=== PATIENT | female | born 1990 | race Caucasian/White ===

== ENCOUNTER 2016-03-06 16:13 | Emergency (ER) | payer SELFPAY ==
[2016-03-06 17:07] VITALS: BP 142/86
[2016-03-06] MEDS ORDERED: Ketorolac INJ* 60 MG/2 ML VIAL IV PUSH ONE (17:37)
[2016-03-06] MEDS ORDERED: PROCHLORPERAZINE INJ 5 MG/ML 2 ML VIAL IV ONE (17:38)
[2016-03-06] MEDS ORDERED: diPHENhydraMINE IV* 50 MG/ML 1 ml VIAL (BENADRYL) IV ONE (17:38)
[2016-03-06] MEDS ORDERED: NS 0.9% 1000 ML* 1,000 ML IV ONE (17:39)
--- NOTE | 2016-03-06 19:29 | ED ---
Headache - HPI Summary HPI Summary: patient is a 25yo with a history of migraines with a cc of migraine with nausea and without aura x4 days. she states she is unable to keep anything down, and is vomiting several times per day. she states this is similiar in nature to her previous migraines and is diffuse. the pain does not radiate anywhere and is worse behind her eyes. she has a triptan at home which she tried to use, but did not take the medication as soon as the onset of the migraine. Now, with worsening nausea. - History Of Current Complaint Chief Complaint: UCHeadache Stated Complaint: HEADACHE Hx Obtained From: Patient Hx Last Menstrual Period: 3 months ago pt has PTOS with irregular periods Onset/Duration: Gradual Onset, Started days ago - 4 days ago Initially Headache Was: Initial Pain Scale(0-10)= - 10/10 - but states "not worst GALAVIZ ever) Currently Pain Is: Current Pain Scale(0-10)= - 8/10 Timing: Constant, Days Character: Throbbing, Pressure Location of Headache: Diffuse Aggravating Factor: Exertion, Bright Lights Allevating Factors: Rest, Other (Noted In Comments) Associated Signs And Symptoms: Dizziness, Nausea, Vomiting - Risk Factors SAH Risk Factors: Negative Meningitis Risk Factors: Negative SDH Risk Factors: Negative Temporal Arteritis Risk Factors: Female, - Allergies/Home Medications Allergies/Adverse Reactions: Allergies Allergy/AdvReac Type Severity Reaction Status Date / Time Penicillins [PCN] Allergy Anaphylatic Verified 03/06/16 17:06 Shock Home Medications: Home Medications Citalopram TAB* [CeleXA TAB*] 20 mg PO DAILY 03/06/16 [History Confirmed ] SUMAtriptan TAB* [Imitrex TAB*] 100 mg PO SEE INSTRUCTIONS 03/06/16 [History Confirmed 03/06/16] PMH/Surg Hx/FS Hx/Imm Hx Previously Healthy: Yes Musculoskeletal History: Reports: Hx Back Problems, Hx Orthopedic Injury - knee and shoulder injuries - Cancer History Hx Chemotherapy: No Hx Radiation Therapy: No - Surgical History Hx Anesthesia Reactions: No Infectious Disease History: No Infectious Disease History: Denies: Traveled Outside the [place] in Last 30 Days - Family History Known Family History: Positive: Unknown - Social History Occupation: Unemployed Lives: With Family Alcohol Use: None Hx Substance Use: No Substance Use Type: Reports: None Hx Tobacco Use: No Smoking Status (MU): Never Smoked Tobacco Do You Chew or Dip Tobacco: No Have You Chewed or Dipped Tobacco in the LAST YEAR: No Have You Smoked in the Last Year: No Household Exposure: No Review of Systems Positive: Fatigue Positive: Photophobia ENT: Negative Cardiovascular: Negative Respiratory: Negative Positive: Vomiting, Nausea Musculoskeletal: Negative Skin: Negative Positive: Headache Psychological: Normal All Other Systems Reviewed And Are Negative: Yes Physical Exam Triage Information Reviewed: Yes Vital Signs On Initial Exam: Initial Vitals Temp Pulse Resp BP Pulse Ox 99.2 F 89 20 142/86 98 03/06/16 17:03 03/06/16 17:03 03/06/16 17:03 03/06/16 17:03 03/06/16 17:03 Vital Signs Reviewed: Yes Appearance: Positive: Well-Appearing, Pain Distress Skin: Positive: Warm, Dry, Soft Head/Face: Positive: Normal Head/Face Inspection Eyes: Positive: Normal, EOMI, YAHAIRA, Conjunctiva Clear ENT: Positive: Normal ENT inspection, Pharynx normal Neck: Positive: Supple, Nontender, No Lymphadenopathy Respiratory/Lung Sounds: Positive: Clear to Auscultation, Breath Sounds Present Cardiovascular: Positive: Normal Abdomen Description: Positive: Nontender, Soft Bowel Sounds: Positive: Present Musculoskeletal: Positive: Normal, Strength/ROM Intact Neurological: Positive: Normal Psychiatric: Positive: Normal AVPU Assessment: Alert - Hoang Coma Scale Best Eye Response: 4 - Spontaneous Best Motor Response: 6 - Obeys Commands Best Verbal Response: 5 - Oriented Diagnostics - Vital Signs Vital Signs Temp Pulse Resp BP Pulse Ox 03/06/16 17:03 99.2 F 89 20 142/86 98 - Laboratory Lab Statement: Any lab studies that have been ordered have been reviewed, and results considered in the medical decision making process. Headache Course/Dx - Course Course Of Treatment: patient evaluated. IV access obtained. compazine, benadryl and toradol ordered. IV infiltrated with toradol. IV access then attempted twice again, unable to access. patient asked for discharged. Provider OK - patient stable. discharged home with medications. Assessment/Plan: Prescription for compazine given. educated patient on triptans , benadryl and ibuprofen. - Diagnoses Differential Diagnosis/HQI/PQRI: Migraine, Temporal Arteritis, Tension Headache Provider Diagnoses: Migraine without aura Is Visit Related: No Discharge - Discharge Plan Condition: Stable Disposition: HOME Prescriptions: Prochlorperazine TAB* [Compazine Tab*] 10 mg PO Q6H PRN #10 tab MDD 4 PRN Reason: Nausea Patient Education Materials: Migraine Headache (ED) Forms: *Work Release Referrals: Rosalino Serrano MD [Primary Care Provider] - Additional Instructions: Abortive therapy: Compazine 10mg benadryl 25mg Ibuprofen 600mg If symptoms persist or fail to improve, come back to UC.
== END 2016-03-06 19:12 | disposition home or self-care (01) ==
LOC: UCEAST 16:13
DX: G43.009 Migraine without aura, not intractable, without status migrainosus (principal); R42 Dizziness and giddiness; R11.2 Nausea with vomiting, unspecified; Z88.0 Allergy status to penicillin
CPT/HCPCS: 96360; 96361; 96365; 96374; 96375; 96376; 99212; G0463; J0780; J1200; J1885